=== PATIENT | male | born 2005 | race Caucasian/White ===

== ENCOUNTER 2025-04-18 08:11 | Emergency (ER) | payer BC, SELFPAY ==
[2025-04-18 08:16] VITALS: BP 126/67
--- NOTE | 2025-04-18 09:06 | ED.GENMED ---
History of Present Illness
General
Chief Complaint: Crisis Evaluation
Source: patient and family (Mother)
Exam Limitations: none
Time Seen by Provider: 04/18/25 08:44
History of Present Illness
History of Present Illness:
20-year-old male complaining of ongoing progressive anxiety. The last 2 to 3 weeks he has become upset about pediatric sexual thoughts. He does not like these thoughts or sensations and wants help. He is depressed over this. He has had some
suicidal ideation but no plan or intent. He also states he would never hurt a child or hurt anyone else.
Past History
Past History
ED Past Medical History: Psychiatric (Anxiety)
ED Past Surgical History: Urological (Hypospadia's)
Review of Systems
Review of Systems
All Other Systems: Not applicable
Constitutional: Denies weight loss
Respiratory: Reports no symptoms
Cardiac: Reports no symptoms
Phy Exam
Physical Exam
Physical Exam:
GENERAL: Alert and oriented in no apparent distress
EYE: Orbits normal.
NECK: Supple, no thyroid palpable
ENT: Pharynx without erythema
CARDIAC: Regular rate and rhythm without any obvious murmurs.
LUNGS: Clear breath sounds,normal
ABDOMEN: Soft, without focal tenderness or distention
NEUROLOGICAL: Alert and oriented , grossly non-focal
SKIN: Warm and dry, no rash or lesion, no discoloration, skin intact.
MUSCULOSKELETAL: No edema,no deformity.Good color
PSYCH: Cooperative. Pleasant. Clearly upset.
Course
Orders/Labs/Results
Orders:
Orders
04/18/25 08:22
1:1 Observation - Suicide/ Violent Behavior As Directed
04/18/25 08:23
Crisis Consult Urgent
Reason for Consult: panic attacks
04/18/25 09:33
BMP [Basic Metabolic Panel] Urgent
CBC/With Diff [Complete Blood Count/With Diff] Urgent
TSH Reflex To Free T4 Urgent
04/18/25 10:01
PSYCHIATRY CONSULT Urgent
Consulting Provider: Kyle Blood
Was physician already notified: Yes
Reason for consult: dpersiion/anxiety/unusual sexual thoughts
Abnormal Lab Results
04/18/25
09:33
WBC 3.8 L 10^3/uL
(4.8-10.8)
Glucose 108 H mg/dl
(70-99)
04/18/25 09:33
04/18/25 09:33
Vital Signs
Initial and Last Documented VS:
Initial Vital Signs
Temp Pulse Resp BP Pulse Ox
98.6 F 68 17 126/67 98
04/18/25 08:16 04/18/25 08:16 04/18/25 08:16 04/18/25 08:16 04/18/25 08:16
Last Documented Vital Signs
Temp Pulse Resp BP Pulse Ox
98.6 F 68 17 126/67 98
04/18/25 08:16 04/18/25 08:16 04/18/25 08:16 04/18/25 08:16 04/18/25 09:08
MDM/Problems Addressed
Differential Diagnosis Includes:
Patient complaining of severe anxiety. Also unusual and concerning sexual thoughts per the patient. He denies suicidal plan but has had thoughts of suicide at times. He however has no intent or plan at this time. He denies that he would hurt
anyone else including children. However he wants help for this issue. Medically he is stable. Because he has not had labs or testing we will check a CBC BMP and thyroid. Likely to be within normal limits. Crisis is evaluating now.
*Pulse Oximetry
SaO2: 98
Oxygen Mode of Delivery: Room air
Patient hypoxic: no
*Critical Care Note
Total Time (30-74mins, 75-104mins- exclusive of procedures): Not Applicable
Update Note
Update Note:
Patient seen and cleared by psychiatry.
ED Attending Note
-
Portions of this chart may have been created with voice recognition software.� Occasional wrong word or��sound alike� substitutions may have occurred due to the inherent limitations of voice recognition software.
Discharge Plan
Departure
Patient Disposition: Home (Routine Discharge)
Date of Disposition: 04/18/25
Time of Disposition: 10:56
Patient with high blood pressure during this ER visit?: Yes
Discharge Problem:
Anxiety/depression
Instructions: Depression, Adult (DC), Anxiety, Adult (DC)
Activity Restrictions/Additional Instructions:
Follow-up per the crisis team and psychiatry
Return sooner with any concerning symptoms including worsening suicidal ideation. Any suicidal plan. Etc.
Interventions
Interventions:
*Risk Screen - Suicide Last Done: 04/18/25 08:19
*General Assessment Last Done: 04/18/25 08:19
*Neglect/Abuse Screening Last Done: 04/18/25 08:19
*ED- Fall Risk Assessment Last Done: 04/18/25 09:33
*ED COVID-19 Vaccine History Last Done: 04/18/25 09:33
Discharge Date and Time
Print Language: MONGOLIAN
[2025-04-18 09:41] LABS: Hematocrit 44.3 % (39.0-52.0); Hemoglobin 15.7 g/dL (13.0-18.0); Mean Corp Hgb Conc. 35.4 g/dL (33.0-37.0); Mean Corpuscular Volume 80.3 fL (80.0-94.0); Nucleated Red Blood Cells % 0 % (-); Platelet Count 246 10^3/uL (130-400); Red Cell Dist. Width 12.5 % (11.5-14.5)
[2025-04-18 10:13] LABS: Blood Urea Nitrogen 10 mg/dl (9-20); Calcium 9.7 mg/dl (8.4-10.2); Carbon Dioxide 24 mmol/L (22-30); Chloride 106 mmol/L (98-107); Glucose 108 mg/dl (70-99); Potassium 4.7 mmol/L (3.5-5.1); Sodium 139 mmol/L (135-145); eGFR > 60.00
--- NOTE | 2025-04-18 11:02 | W.PN.UPDATE ---
Update Note
Progress Note Update
Psychiatric Evaluation dictated.
20 yo male who has intrusive sexual thoughts thoughts about children , particularly having sexual interactions with them and seeing them naked. These thoughts bother him and he would never act on them, in fact they scare him. this makes him
question as to what type of person he is and should he be better off . However he has no current suicidal thoughts or plan. Appetite is poor over past 2 weeks, denies insomnia.
He is not psychotic, has appointment with OP therapist on Sunday.
At this point I do not feel he is in immediate danger to self or others. Will give 0.5 mg prn for anxiety.
Patient can return if symptoms are worse.
[2025-04-18 11:15] VITALS: BP 110/63
== END 2025-04-18 11:15 | disposition home or self-care (01) ==
LOC: EMR 08:11
PROVIDERS: CONSULT PHYSICIAN Psychiatry & Neurology Psychiatry; EMERGENCY PHYSICIAN Emergency Medicine; FAMILY PHYSICIAN Family Medicine
DX: F41.1 Generalized anxiety disorder (principal); F32.A Depression, unspecified; Z81.8 Family history of other mental and behavioral disorders
CPT/HCPCS: 99284; 80048; 84443; 85025